=== PATIENT | male | born 1975 | race African-American/Black ===

== ENCOUNTER 2020-06-16 15:35 | Observation (INO) | payer SELFPAY ==
[~2020-06-16] VITALS: Ht 172.7 cm; Wt 81.0 kg
[2020-06-16 16:35] LABS: HEMATOCRIT 45.4 % (39.0-50.0); HEMOGLOBIN 14.9 g/dl (14.0-18.0); IMMATURE GRANULOCYTES 0.5 % (0.0-5.0); MEAN CELL VOLUME 86.3 fL CALC (80.0-100.0); MEAN CORPUSCULAR HGB 28.3 pG CALC (26.0-32.0); MEAN CORPUSCULAR HGB CONC 32.8 g/dL CAL (32.0-36.0); NEUT# 6.08 thou/uL (1.82-7.42); RED BLOOD COUNT 5.26 mill/uL (4.70-6.10); RED CELL DISTRI WIDTH 12.1 % (11.5-15.5)
[2020-06-16 16:47] LABS: ALBUMIN 4.7 g/dL (3.2-5.0); ALKALINE PHOSPHATASE 86 u/l (38-126); ANION GAP 17 (6-22 (CALC)); BUN 18 mg/dL (9-20); BUN/CREATININE RATIO 14 (12-20 (CALC)); CARBON DIOXIDE 24 mmol/l (22-30); CHLORIDE 99 mmol/l (95-108); CREATININE 1.2 mg/dL (0.7-1.3); GFR > 60 ML/MIN (>=60 (CALC)); GFR FOR AFR.AMER. > 60 ML/MIN (>=60 (CALC)); POTASSIUM 4.9 mmol/l (3.5-5.1); SGOT/AST 40 u/l (17-59); SODIUM 134 mmol/l (137-146); TOTAL PROTEIN 8.7 g/dL (6.3-8.2)
[2020-06-16 19:38] VITALS: BP 152/80
[2020-06-17] VITALS: BP 140/82
[2020-06-17 03:33] VITALS: BP 136/85
[2020-06-17 05:02] LABS: CHOLESTEROL HDL RATIO 9.2 (<4.4 (CALC))
[2020-06-17 07:37] VITALS: BP 148/94
[2020-06-17] MEDS ORDERED: LISINOPRIL20 M1 PO (12:07)
[2020-06-17] MEDS ORDERED: LIPITOR20 MG PO (12:08)
[2020-06-17] MEDS ORDERED: NOVOLIN 70/30 SC (12:09)
[2020-06-17] MEDS ORDERED: METFORMIN500 M2 PO (12:09)
[2020-06-17 16:00] VITALS: BP 152/92
[2020-06-17 19:00] VITALS: BP 153/94
[2020-06-18] VITALS: BP 124/69
[2020-06-18 04:00] VITALS: BP 139/77
[2020-06-18 08:15] VITALS: BP 145/84
[2020-06-18 09:16] VITALS: BP 145/84
== END 2020-06-18 13:54 | disposition home or self-care (01) | DRG 639 ==
LOC: ED 15:35 → ED-I 17:30 → ED 17:54 → MS2 17:55
PROVIDERS: Family Medicine; ADMIT Internal Medicine; ATTEND Internal Medicine
DX: E11.65 Type 2 diabetes mellitus with hyperglycemia (principal); I10 Essential (primary) hypertension; E78.5 Hyperlipidemia, unspecified; Z20.828 Contact with and (suspected) exposure to other viral communicable diseases
CPT/HCPCS: G0378

== ENCOUNTER 2020-06-18 15:16 | Observation (INO) | payer SELFPAY ==
[~2020-06-18] VITALS: Ht 172.7 cm; Wt 84.9 kg
[~2020-06-18 15:16] MED LIST: LIPITOR20 MG PO; LISINOPRIL20 M1 PO; METFORMIN500 M2 PO; NOVOLIN 70/30 SC
--- NOTE | 2020-06-18 15:16 | NUR ---
PATIENT TO ROOM VIA WHEELCHAIR AND PHYSICIAN AT BEDSIDE FOR EVAL
[2020-06-18 15:53] LABS: HEMOGLOBIN 13.4 g/dl (14.0-18.0); IMMATURE GRANULOCYTES 0.2 % (0.0-5.0); MEAN CELL VOLUME 86.3 fL CALC (80.0-100.0); MEAN CORPUSCULAR HGB 28.2 pG CALC (26.0-32.0); MEAN CORPUSCULAR HGB CONC 32.7 g/dL CAL (32.0-36.0); NEUT# 5.73 thou/uL (1.82-7.42); RED BLOOD COUNT 4.75 mill/uL (4.70-6.10)
[2020-06-18 16:12] LABS: ALKALINE PHOSPHATASE 56 u/l (38-126); ANION GAP 11 (6-22 (CALC)); BUN 15 mg/dL (9-20); BUN/CREATININE RATIO 14 (12-20 (CALC)); CARBON DIOXIDE 25 mmol/l (22-30); CHLORIDE 105 mmol/l (95-108); GFR > 60 ML/MIN (>=60 (CALC)); GFR FOR AFR.AMER. > 60 ML/MIN (>=60 (CALC)); LIPASE 168 u/l (23-300); POTASSIUM 4.3 mmol/l (3.5-5.1); SGOT/AST 31 u/l (17-59); SODIUM 136 mmol/l (137-146)
[2020-06-18 16:18] LABS: ALBUMIN 3.6 g/dL (3.2-5.0); BILIRUBIN, TOTAL 0.5 mg/dL (0.0-1.4); TOTAL PROTEIN 6.7 g/dL (6.3-8.2)
--- NOTE | 2020-06-18 16:29 | NUR ---
PT SITTING UP IN BED IN NO DISTRESS, DENIES PALPITATIONS OR SOB
[2020-06-18 16:30] LABS: ACT PARTIAL THROMBO TIME 20.7 SECONDS (20.0-32.5); INTERNATIONAL NORMALIZED RATIO 1.2 RATIO (0.7-1.3); PROTHROMBIN TIME 11.7 SECONDS (9.0-12.5)
[2020-06-18 17:09] LABS: URINE BILIRUBIN - DIPSTICK NEGATIVE (NEGATIVE); URINE BLOOD DIPSTICK NEGATIVE (NEGATIVE); URINE COLOR YELLOW; URINE GLUCOSE - DIPSTICK >=1000 mg/dL (NEGATIVE); URINE KETONE 15 mg/dL (NEGATIVE); URINE LEUK ESTERASE NEGATIVE (NEGATIVE); URINE NITRITE - DIPSTICK NEGATIVE (Negative); URINE PH 5.5 (4.5-8.0); URINE PROTEIN - DIPSTICK NEGATIVE (NEG-TRACE); URINE SPECIFIC GRAVITY 1.025; URINE UROBILINOGEN - DIPSTICK 0.2 E.U./dL (0.2)
--- NOTE | 2020-06-18 17:10 | NUR ---
PT RESTING IN NO DISTRESS, UPDATED ON WAIT TIME. VSS. NO TACYCARDIA, SOB OR CHEST PAIN
--- NOTE | 2020-06-18 18:45 | NUR ---
PT TRANSPORTED TO [place] VIA WC ON TELE IN NO DISTRESS
--- NOTE | 2020-06-18 18:51 | NUR ---
PT ARRIVED FROM ER VIA WC WITH TELE
[2020-06-18 19:44] VITALS: BP 136/89
--- NOTE | 2020-06-18 19:45 | NUR ---
ADMISSION ASSESSMENT COMPLETED; ORIENTED TO CALL LIGHT, ROOM, AND POC; VERBALIZES UNDERSTANDING; TELEMETRY IN PLACE. DENIES NEEDS/PAIN. DECLINES KANU HOSE, NON-SKID SOCKS APPLIED. ENCOURAGED TO CALL FOR ANY NEEDS. CALL LIGHT IS IN REACH. WILL CONTINUE TO MONITOR.
--- NOTE | 2020-06-18 21:06 | NUR ---
SCHED MEDS GIVEN. DENIES NEEDS.
--- NOTE | 2020-06-18 23:38 | NUR ---
PT. RESTING IN BED WITH EYES CLOSED; NO DISTRESS NOTED; DENIES NEEDS/PAIN. ENCOURAGED TO CALL FOR ANY NEEDS. CALL LIGHT IS IN REACH.
[2020-06-19] VITALS: BP 143/72
--- NOTE | 2020-06-19 02:18 | NUR ---
RESTING IN BED WITH EYES CLOSED; RESP. EVEN AND UNLABORED; CALL LIGHT IS IN REACH.
[2020-06-19 03:48] VITALS: BP 115/68
--- NOTE | 2020-06-19 04:45 | NUR ---
RESTING IN BED WITH EYES CLOSED; RESP. EVEN AND UNLABORED.
[2020-06-19 07:35] VITALS: BP 127/83
--- NOTE | 2020-06-19 07:35 | NUR ---
ASSESSMENT IS COMPLETD: IV SITE IS FREE FROM REDNESS OR EDEMA. HR IS REG,PULSES ARE STRONG X4, ABD IS SOFT WITH ACTIVE BS. BREATH SOUNDS ARE CLEAR BILATERAL. TELE MONITOR IN PLACE. CONTINUE TO OBSERVE AND MONITOR.
[2020-06-19 08:08] LABS: HEMATOCRIT 41.9 % (39.0-50.0); HEMOGLOBIN 13.6 g/dl (14.0-18.0); IMMATURE GRANULOCYTES 0.2 % (0.0-5.0); MEAN CELL VOLUME 87.1 fL CALC (80.0-100.0); MEAN CORPUSCULAR HGB 28.3 pG CALC (26.0-32.0); MEAN CORPUSCULAR HGB CONC 32.5 g/dL CAL (32.0-36.0); NEUT# 3.34 thou/uL (1.82-7.42); RED BLOOD COUNT 4.81 mill/uL (4.70-6.10); RED CELL DISTRI WIDTH 11.9 % (11.5-15.5)
[2020-06-19 08:30] LABS: ALBUMIN 3.3 g/dL (3.2-5.0); ALKALINE PHOSPHATASE 51 u/l (38-126); ANION GAP 9 (6-22 (CALC)); BILIRUBIN, TOTAL 0.7 mg/dL (0.0-1.4); BUN 12 mg/dL (9-20); BUN/CREATININE RATIO 12 (12-20 (CALC)); CARBON DIOXIDE 27 mmol/l (22-30); CHLORIDE 105 mmol/l (95-108); CREATININE 0.9 mg/dL (0.7-1.3); GFR > 60 ML/MIN (>=60 (CALC)); GFR FOR AFR.AMER. > 60 ML/MIN (>=60 (CALC)); SGOT/AST 30 u/l (17-59); SODIUM 136 mmol/l (137-146); TOTAL PROTEIN 6.3 g/dL (6.3-8.2)
[2020-06-19 10:35] VITALS: BP 143/87
--- NOTE | 2020-06-19 12:05 | NUR ---
PT IS RELAXING IN BED AND TALKING WITH FAMILY IN THE ROOM. IV SITE IS FREE FROM REDNESS OR EDEMA.
--- NOTE | 2020-06-19 12:45 | NUR ---
DISCHARGE INSTRUCTIONS AND IV SITE WITH TELE MONITOR DISCONTINUED, CATHTER INTACT. NO REDNESS OR EDEMA. PT IS ABLE TO GO HOME WILL HAVE BROTHER PICK HIM UP. INQUIRED AGAIN ABOUT THE INSULIN. EXPLAINED THAT HE NEEDS TO TAKE 70/30 AT BEDTIME.
--- NOTE | 2020-06-19 13:34 | NUR ---
PT AMBULATED OFF THE UNIT
== END 2020-06-19 13:30 | disposition home or self-care (01) | DRG 313 ==
LOC: ED 15:16 → ED-I 17:20 → ED 17:30 → MS2 17:31
PROVIDERS: Nurse Practitioner Family; ADMIT Internal Medicine; ATTEND Internal Medicine
DX: R07.9 Chest pain, unspecified (principal); I10 Essential (primary) hypertension; E11.65 Type 2 diabetes mellitus with hyperglycemia; E78.5 Hyperlipidemia, unspecified; Z20.828 Contact with and (suspected) exposure to other viral communicable diseases
CPT/HCPCS: G0378; J1650

== ENCOUNTER 2020-06-21 20:41 | Observation (INO) | payer SELFPAY ==
[~2020-06-21] VITALS: Ht 172.7 cm; Wt 88.9 kg
--- NOTE | 2020-06-21 21:00 | NUR ---
AMBULATED TO ROOM WITH STEADY GAIT.
--- NOTE | 2020-06-21 22:02 | NUR ---
DISCUSSED INSULIN DOSING AND TESTING.
[2020-06-21 22:03] LABS: HEMATOCRIT 38.4 % (39.0-50.0); HEMOGLOBIN 12.5 g/dl (14.0-18.0); IMMATURE GRANULOCYTES 0.2 % (0.0-5.0); MEAN CELL VOLUME 86.5 fL CALC (80.0-100.0); MEAN CORPUSCULAR HGB 28.2 pG CALC (26.0-32.0); MEAN CORPUSCULAR HGB CONC 32.6 g/dL CAL (32.0-36.0); NEUT# 3.7 thou/uL (1.82-7.42); RED BLOOD COUNT 4.44 mill/uL (4.70-6.10); RED CELL DISTRI WIDTH 12.2 % (11.5-15.5)
--- NOTE | 2020-06-21 23:00 | NUR ---
TALKING ON PHONE. NAD.
--- NOTE | 2020-06-21 23:17 | NUR ---
STATES VISION NO BETTER. ADVISED.
[2020-06-22 00:01] LABS: ALBUMIN 3.6 g/dL (3.2-5.0); ALKALINE PHOSPHATASE 51 u/l (38-126); ANION GAP 12 (6-22 (CALC)); BILIRUBIN, TOTAL 0.4 mg/dL (0.0-1.4); BUN 12 mg/dL (9-20); BUN/CREATININE RATIO 12 (12-20 (CALC)); CARBON DIOXIDE 23 mmol/l (22-30); CHLORIDE 104 mmol/l (95-108); GFR > 60 ML/MIN (>=60 (CALC)); GFR FOR AFR.AMER. > 60 ML/MIN (>=60 (CALC)); SGOT/AST 56 u/l (17-59); SODIUM 135 mmol/l (137-146); TOTAL PROTEIN 6.6 g/dL (6.3-8.2)
--- NOTE | 2020-06-22 01:00 | NUR ---
NO CHANGES NOTED IN EXAM.
--- NOTE | 2020-06-22 01:50 | NUR ---
Admission Note Report Given to: SCOOBY PETTY Transported by: X Wheelchair Stretcher Transported with: X Nurse Transporter X Patent IV O2 X Hand Presser Location: ICU X [facility]
[2020-06-22 01:53] VITALS: BP 118/76
--- NOTE | 2020-06-22 01:55 | NUR ---
PATIENT ARRIVES VIA WHEELCHAIR ACCOMPANIED BY ER NURSE NICHOLE. PATIENT HAS A STEADY GAIT, ABLE TO WALK TO THE BED. PATIENT IS ALERT AND ORIENTED X4. ON RA, O2 SAT 99%, NO SOB NOTED. NO COMPLAINTS OF PAIN. ONLY COMPLAINT IS BLURRED VISION, HE REPORTS IT IS A PROBLEM THAT JUST STARTED YESTERDAY AROUND "4-5 PM," AND HE NOTIVED IT WHEN HE LOOKS AT HIS PHONE TO READ TEXT MESSAGES, SYMTOM HAS NOT WORSENED AND HAS STAYED THE SAME. LAC 20 G IV INTACT, SALINE LOCKED, FLUSHES PROPERLY. NURSE ASSESSMENT PERFORMED. POC DISCUSSED, PT UNDERSTANDS AND AGREES. SELF REPOSITIONS. PATIENT GIVEN VERBAL EDUCATION ABOUT DIABETES DIAGNOSIS. PT REPORTS HE WILL BE BACK ON TRACK AND IT WILL GET FIXED, I HAVE EDUACTED HIM DIABETES IS NOT TEMPORARY. 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 PATIENT ONLY ADMITS TO DIABETES ALTHOUGH HE REPORTS HE TAKES ATORVASTATIN AND LISINOPRIL. CALL LIGHT WITHIN REACH.
--- NOTE | 2020-06-22 02:50 | NUR ---
NORMAL SALINE IV FLUIDS INFUSING NOW ON LAC 20 G, IV SITE IS INTACT, FLUSHES PROPERLY, NO REDNESS OR TENDERNESS NOTED. WARM BLANKET PROVIDED. NO ACUTE DISTRESS SHOWN. CALL LIGHT WITHIN REACH.
[2020-06-22 03:45] VITALS: BP 123/79
[2020-06-22 05:12] LABS: BASO% 0 % (0-3); EOS% 2 % (0-8); HEMATOCRIT 37.2 % (39.0-50.0); HEMOGLOBIN 12.2 g/dl (14.0-18.0); IMMATURE GRANULOCYTES 0.2 % (0.0-5.0); LYMPH% 27 % (15-41); MEAN CELL VOLUME 87.5 fL CALC (80.0-100.0); MEAN CORPUSCULAR HGB 28.7 pG CALC (26.0-32.0); MEAN CORPUSCULAR HGB CONC 32.8 g/dL CAL (32.0-36.0); MONO% 11 % (2-13); NEUT# 3.51 thou/uL (1.82-7.42); NEUT% 60 % (42-76); PLATELET COUNT 201 thou/uL (130-400); RED BLOOD COUNT 4.25 mill/uL (4.70-6.10); RED CELL DISTRI WIDTH 12.3 % (11.5-15.5)
[2020-06-22 05:29] LABS: ALKALINE PHOSPHATASE 38 u/l (38-126); ANION GAP 9 (6-22 (CALC)); BILIRUBIN, TOTAL 0.5 mg/dL (0.0-1.4); BUN 10 mg/dL (9-20); BUN/CREATININE RATIO 11 (12-20 (CALC)); CARBON DIOXIDE 23 mmol/l (22-30); CHLORIDE 109 mmol/l (95-108); CREATININE 0.9 mg/dL (0.7-1.3); GFR > 60 ML/MIN (>=60 (CALC)); GFR FOR AFR.AMER. > 60 ML/MIN (>=60 (CALC)); POTASSIUM 3.7 mmol/l (3.5-5.1); SGOT/AST 59 u/l (17-59); SODIUM 138 mmol/l (137-146); TOTAL PROTEIN 5.8 g/dL (6.3-8.2)
--- NOTE | 2020-06-22 06:14 | NUR ---
PATIENT AWAKENS EASILY WHEN SPOKEN TO. NO ACUTE DISTRESS SHOWN. PAPER EDUCATION PROVIDED REGARDING DIABETIC DIAGNOSIS. NO COMPLAINTS OR NEEDS AT THIS TIME. CALL LIGHT WITHIN REACH.
--- NOTE | 2020-06-22 08:30 | NUR ---
ASSESSMENT DONE PT IS A&O X3. PT DENIES PAIN AT THIS TIME. PT STATED HE STILL HAS BLURR VISION. TELE IN PLACE. IVF INFUSING WELL. PT ACCU WAS 76. PT STATED HE HAS NOT HAD A BM FOR A FEW DAYS. PRUINE JUICE PROVIDED. PT DENIES ANY OTHER NEEDS AT THIS TIME. SAFETY PRECAUTIONS REINFORCED AND CALL LIGHT IN REACH. CALL LIGHT IN REACH. NOTIFIED HERI SANCHEZ RE: BLURR VISION AND NO BM.
[2020-06-22 08:35] VITALS: BP 141/79
[2020-06-22] MEDS ORDERED: NOVOLIN 70/30 SC (09:43)
[2020-06-22 10:20] VITALS: BP 130/80
--- NOTE | 2020-06-22 11:47 | NUR ---
Discharge instructions given. Patient verbalizes understanding of same. Discharged in stable condition via Wheelchair to Home with staff. All belongings sent with pt.
== END 2020-06-22 11:47 | disposition home or self-care (01) | DRG 639 ==
LOC: ED 20:41 → MS2 06-22 01:31 → ED 06-22 01:36 → ED-I 06-22 01:36 → MS2 06-22 11:47
PROVIDERS: Emergency Medicine; ADMIT Internal Medicine; ATTEND Internal Medicine
DX: E11.65 Type 2 diabetes mellitus with hyperglycemia (principal); H53.8 Other visual disturbances; I10 Essential (primary) hypertension; E78.5 Hyperlipidemia, unspecified; Z79.4 Long term (current) use of insulin; Z20.828 Contact with and (suspected) exposure to other viral communicable diseases
CPT/HCPCS: G0378